=== PATIENT | female | born 1985 | race African-American/Black ===

== ENCOUNTER 2020-07-06 13:16 | Inpatient (IN) | payer BC ==
[2020-07-06 17:26] VITALS: BMI 43.4
--- NOTE | 2020-07-06 17:32 | BHS.RME ---
Substance Use & Tx History - Substance Use History Alcohol Substance amount: 1 litre of liquor Frequency of use: Daily Substance route: Oral Date of Last Use: 07/06/20 - Last Treatment Date of last treatment: never Physical/Psych/Mental Status - Behavior Eye Contact: Normal - Cooperativeness Cooperativeness: Cooperative - Thinking Thought Processes: Logical Thought content: Future oriented - Physical Health Problems Is patient presently having any pain?: No Does patient presently have any injuries (include location): No Does patient currently have a fever: No CIWA Nausea/Vomitin Muscle Tremors: 3 Anxiety: 3 Agitation: 3 Paroxysmal Sweats: 1-Minimal Palms Moist Orientation: 0-Oriented Tacttile Disturbances: 0-None Auditory Disturbances: 0-None Visual Disturbances: 0-None Headache: 2-Mild CIWA-Ar Total Score: 15
--- NOTE | 2020-07-06 17:40 | HP ---
CIWA Score Nausea/Vomitin Muscle Tremors: 3 Anxiety: 3 Agitation: 3 Paroxysmal Sweats: 1-Minimal Palms Moist Orientation: 0-Oriented Tacttile Disturbances: 0-None Auditory Disturbances: 0-None Visual Disturbances: 0-None Headache: 2-Mild CIWA-Ar Total Score: 15 - Admission Criteria OASAS Guidelines: Admission for Medically Managed Detox: Requires at least one of the followin. CIWA greater than 12 2. Seizures within the past 24 hours 3. Delirium tremens within the past 24 hours 4. Hallucinations within the past 24 hours 5. Acute intervention needed for co occurring medical disorder 6. Acute intervention needed for co occurring psychiatric disorder 7. Severe withdrawal that cannot be handled at a lower level of care (continued vomiting, continued diarrhea, abnormal vital signs) requiring intravenous medication and/or fluids 8. Admitting History and Physical - Admission Chief Complaint: i need help to stop drinking alcohol History of Present Illness: this 34 years old female patient with alcohol dependence,sickle cell trait, never been in detox anxiety,depression,insomnia History Source: Patient Limitations to Obtaining History: No Limitations - Past Medical History ...LMP: 05/27/20 ...: No Infectious Disease: Yes: HIV Psych: Yes: Anxiety, Depression, Other (insomnia) - Smoking History Smoking history: Never smoked - Alcohol/Substance Use Hx Alcohol Use: Yes Date of Last Use: 07/06/20 - Social History Usual Living Arrangement: Yes: Alone Do you think of yourself as: Straight/Heterosexual Occupation: unemployed History of Recent Travel: No Other Social History: umemployed,no legal issue Admission [facility] Chief Complaint: i need helpto stop drinking alcohol Allergies/Adverse Reactions: Allergies Allergy/AdvReac Type Severity Reaction Status Date / Time No Known Allergies Allergy Verified 07/06/20 17:49 History of Present Illness: this 34 years old female with alcohol dependence seeking detox,withdrawal symptom denied seizure syncope obesity anxiety,depression,insomnia plan for rehab Exam Limitations: No Limitations - Ebola screening Have you traveled outside of the country in the last 21 days: No Have you had contact with anyone from an Ebola affected area: No Have you been sick,other than usual withdrawal symptoms: No - Review of Systems Constitutional: Loss of Appetite, Malaise, Night Sweats, Changes in sleep, Weakness EENT: reports: No Symptoms Reported, Nose Congestion Respiratory: reports: No Symptoms reported Cardiac: reports: No Symptoms Reported GI: reports: Nausea, Poor Appetite, Poor Fluid Intake : reports: No Symptoms Reported Musculoskeletal: reports: Back Pain, Muscle Pain Integumentary: reports: Dryness Neuro: reports: No Symptoms reported Endocrine: reports: No Symptoms Reported Hematology: reports: No Symptoms Reported Psychiatric: reports: No Sypmtoms Reported, Judgement Intact, Mood/Affect Appropiate, Orientated x3, Anxious, Depressed Other Systems: Reviewed and Negative Patient History - Patient Medical History Hx Anemia: No Hx Asthma: No Hx Chronic Obstructive Pulmonary Disease (COPD): No Hx Cancer: No Hx Cardiac Disorders: No Hx Congestive Heart Failure: No Hx Hypertension: No Hx Hypercholesterolemia: No Hx Pacemaker: No HX Cerebrovascular Accident: No Hx Seizures: No Hx Dementia: No Hx Diabetes: No Hx Gastrointestinal Disorders: No Hx Sexually Transmitted Disorders: No Hx Renal Disease (ESRD): No Hx Thyroid Disease: No Hx Human Immunodeficiency Virus (HIV): No (01/2020) Hx Hepatitis C: No Hx Depression: Yes Hx Suicide Attempt: No Hx Bipolar Disorder: No Hx Schizophrenia: No Other Medical History: no suicidal,no honicidal - Patient Surgical History Past Surgical History: No - PPD History Previous Implant?: Yes Documented Results: Negative w/o proof Implanted On Prior R Admission?: No PPD to be Administered?: Yes - Reproductive History Patient is a Female of Child Bearing Age (11 -55 yrs old): Yes Last Menstrual Period: 05/25/20 Patient : No - Smoking Cessation Smoking history: Never smoked Hx Chewing Tobacco Use: No Initiated information on smoking cessation: No - Substance & Tx. History Hx Alcohol Use: Yes Hx Substance Use: No Substance Use Type: Alcohol Hx Substance Use Treatment: No - Substances abused Alcohol Substance route: Oral Frequency: Daily Amount used: 1 litre of liquor Age of first use: 22 Date of last use: 07/06/20 Admission Physical Exam BHS - Vital Signs Vital Signs: Vital Signs - 24 hr 07/06/20 17:24 Temperature 97.1 F L Pulse Rate 82 Respiratory 18 Rate Blood Pressure 141/91 - Physical General Appearance: Yes: Moderate Distress, Tremorous, Irritable, Sweating, Anxious HEENTM: Yes: Normal ENT Inspection, TAVON, Pharynx Normal Respiratory: Yes: Lungs Clear, Normal Breath Sounds, No Respiratory Distress Neck: Yes: Within Normal Limits, Supple, Trachea in good position Breast: Yes: Breast Exam Deferred Cardiology: Yes: Within Normal Limits, Regular Rhythm, Regular Rate, S1, S2 Abdominal: Yes: Within Normal Limits, Non Tender, Flat, Soft, Increased Bowel Sounds Genitourinary: Yes: Within Normal Limits Back: Yes: Muscle Spasm Musculoskeletal: Yes: Back pain, Muscle Pain Extremities: Yes: Tremors Neurological: Yes: ad operations intern II-XII NML intact, Fully Oriented, Alert, Motor Strength 5/5 Integumentary: Yes: Dry Lymphatic: Yes: Within Normal Limits - Diagnostic (1) Alcohol dependence with uncomplicated withdrawal Current Visit: Yes Status: Acute (2) Alcohol dependence with intoxication Current Visit: Yes Status: Acute (3) Syncope Current Visit: Yes Status: Acute (4) Insomnia Current Visit: Yes Status: Acute (5) Anxiety and depression Current Visit: Yes Status: Acute Cleared for Admission [facility] - Detox or Rehab [facility] Level of Care: Medically Managed Detox Regimen/Protocol: Librium Breathalyzer - Breathalyzer Breathalyzer: 0.168 Urine Drug Screen - Test Device Lot number: [id number] Expiration date: 02/13/22 - Control Is test valid?: Yes - Results Drug screen NEGATIVE: Yes Inpatient Rehab Admission - Rehab Decision to Admit Inpatient rehab admission?: No
[2020-07-06] MEDS ORDERED: MAG HYDROX/AL HYDROX/SIMETH 30 ML UNIT-DOSE CUP PO PRN (18:04)
[2020-07-06] MEDS ORDERED: MAGNESIUM CITRATE 300 ML BOTTLE PO PRN (18:04)
[2020-07-06] MEDS ORDERED: MAGNESIUM HYDROX 2400MG/30ML ORAL SUSPENSION 30 ML CUP PO PRN (18:04)
[2020-07-06] MEDS ORDERED: IBUPROFEN 400 MG TABLET (FP) PO PRN (18:04)
[2020-07-06] MEDS ORDERED: METHOCARBAMOL 500 MG TABLET PO PRN (18:04)
[2020-07-06] MEDS ORDERED: ACETAMINOPHEN 325 MG TABLET (FP) PO PRN ×2 (18:04)
[2020-07-06] MEDS ORDERED: chlordiazePOXIDE HCL 25 MG CAPSULE PO PRN (18:04)
[2020-07-06] MEDS ORDERED: BISMUTH SUBSALICYLATE 524 MG/30 ML UD PO PRN (18:04)
[2020-07-06] MEDS ORDERED: MENTHOL/PHENOL 1 EACH UD MM PRN (18:04)
[2020-07-06] MEDS ORDERED: ONDANSETRON *ODT* 4 MG TABLET SL ONE (18:30)
[2020-07-06] MEDS: chlordiazePOXIDE HCL 25 MG CAPSULE PO SCH (22:33)
[2020-07-06] MEDS: THIAMINE HCL 100 MG TABLET (FP) PO SCH (22:33)
[2020-07-06] MEDS: MELATONIN 5 MG TABLETS PO SCH (22:34)
[2020-07-06] MEDS: hydrOXYzine PAMOATE 25 MG CAPSULE (FP) PO SCH (22:34)
[2020-07-07] MEDS: hydrOXYzine PAMOATE 25 MG CAPSULE (FP) PO SCH ×5 (05:59→22:33)
[2020-07-07] MEDS: chlordiazePOXIDE HCL 25 MG CAPSULE PO SCH ×4 (05:59→22:33)
[2020-07-07 10:17] LABS: HEMATOCRIT 33.7 % (32.4-45.2); MCH 28.7 pg (25.7-33.7); MCHC 32.7 g/dl (32.0-36.0); MEAN CELL VOLUME 87.9 fl (80-96); MEAN PLT VOLUME 9.3 fl (7.5-11.1); PLATELET COUNT 218 K/MM3 (134-434); RBC 3.84 M/mm3 (3.60-5.2); RDW 15.3 % (11.6-15.6); WHITE BLOOD COUNT 5.6 K/mm3 (4.0-10.0)
[2020-07-07 10:18] LABS: ALBUMIN 3.2 g/dl (3.4-5.0); BILIRUBIN,TOTAL 0.5 mg/dL (0.2-1); BLOOD UREA NITROGEN 9.3 mg/dL (7-18); CALCIUM 8.3 mg/dL (8.5-10.1); CREATININE 0.8 mg/dL (0.55-1.3); POTASSIUM 3.7 mmol/L (3.5-5.1)
[2020-07-07 10:19] LABS: TOT PROT 6.7 g/dl (6.4-8.2)
--- NOTE | 2020-07-07 10:29 | CONSULT ---
[facility] Psychiatric Consult - Data Date of interview: 07/07/20 Admission source: [facility] Identifying data: Patient is a 34 year old single female, without children, unemployed, domiciled, and is financially supported by cook assistance. This is patient's first admission to detox at [facility]. Patient admitted to for treatment of alcohol dependence. Substance Abuse History: Smoking Cessation. Smoking history: Never smoked. Hx Chewing Tobacco Use: No. Initiated information on smoking cessation: No. - Substance & Tx. History. Hx Alcohol Use: Yes. Hx Substance Use: No. Substance Use Type: Alcohol. Hx Substance Use Treatment: No. - Substances abused. Alcohol. Substance route: Oral. Frequency: Daily. Amount used: 1 litre of liquor. Age of first use: 22. Date of last use: 07/06/20 Medical History: Significant for sickle cell trait. Psychiatric History: Patient denies history of psychiatric hospitalizations, outpatient psychiatric care, and suicide attempt. Patient is prescribed Wellbutrin 150mg SR BID by her primary care physician. Reports taking the medication for one year but has been noncompliant with medication for two weeks due to relapsing. At present patient reports feeling sad. Physical/Sexual Abuse/Trauma History: denies. Mental Status Exam - Mental Status Exam Alert and Oriented to: Time, Place, Person Cognitive Function: Good Patient Appearance: Well Groomed Affect: Appropriate Patient Behavior: Cooperative Speech Pattern: Appropriate Voice Loudness: Normal Thought Process: Intact, Goal Oriented Thought Disorder: Not Present Hallucinations: Denies Suicidal Ideation: Denies Homicidal Ideation: Denies Insight/Judgement: Poor Sleep: Poorly Appetite: Fair Muscle strength/Tone: Normal Gait/Station: Normal Psychiatric Findings - Problem List ([place] 1, 2,3) (1) Alcohol-induced mood disorder Current Visit: Yes Status: Acute (2) Alcohol dependence with uncomplicated withdrawal Current Visit: Yes Status: Acute - Initial Treatment Plan Initial Treatment Plan: Psychoeducation provided. Detoxification in progress. Will order Wellbutrin 150mg XL. Benefits and side effects discussed. Verbal consent given.
[2020-07-07] MEDS: PRENATAL VITAMINS W/ FOLIC ACID TABLET (FP) PO SCH (10:38)
[2020-07-07 11:04] LABS: SICKLE CELL SCREEN NEGATIVE (NEGATIVE)
--- NOTE | 2020-07-07 11:51 | EKG ---
Test Reason : Blood Pressure : / mmHG Vent. Rate : 077 BPM Atrial Rate : 077 BPM P-R Int : 154 ms QRS Dur : 090 ms QT Int : 398 ms P-R-T Axes : 043 004 -04 degrees QTc Int : 450 ms NORMAL SINUS RHYTHM MINIMAL VOLTAGE CRITERIA FOR LVH, MAY BE NORMAL VARIANT NO PREVIOUS ECGS AVAILABLE Confirmed by JAYLYN SCHMIDT MD ([id number]) on 07/07/2020 11:51:16 AM Referred By: Confirmed By:JAYLYN SCHMIDT MD
--- NOTE | 2020-07-07 17:48 | PN ---
S CIWA - CIWA Score Nausea/Vomitin-Mild Nausea/No Vomiting Muscle Tremors: 2 Anxiety: 3 Agitation: 2 Paroxysmal Sweats: 3 Orientation: 0-Oriented Tacttile Disturbances: 1-Very Mild Itch/Numbness Auditory Disturbances: 0-None Visual Disturbances: 0-None Headache: 0-None Present CIWA-Ar Total Score: 12 BHS Progress Note (SOAP) Subjective: Feels ok Objective: 07/07/20 17:44 Last Vital Signs Temp Pulse Resp BP Pulse Ox 98 F 83 18 150/84 98 07/07/20 16:46 07/07/20 16:46 07/07/20 16:46 07/07/20 16:46 07/07/20 13:15 Elevated b/p Laboratory Tests 07/07/20 07/07/20 07/07/20 07:34 07:34 07:34 WBC 5.6 RBC 3.84 Hgb 11.0 Hct 33.7 MCV 87.9 MCH 28.7 MCHC 32.7 RDW 15.3 Plt Count 218 MPV 9.3 Sickle Cell Screen Negative Sodium 139 Potassium 3.7 Chloride 105 Carbon Dioxide 30 Anion Gap 4 L BUN 9.3 Creatinine 0.8 Est GFR (CKD-EPI)AfAm 112.27 Est GFR (CKD-EPI)NonAf 96.87 Random Glucose 76 Calcium 8.3 L Total Bilirubin 0.5 AST 9 L ALT 11 L Alkaline Phosphatase 68 Total Protein 6.7 Albumin 3.2 L Syphilis Serology Non-reactive Labs reviewed: Ca 8.3 (low), albumin 3.2 (low) Assessment: 07/07/20 17:46 Withdrawal sxs Noted with elevated b/p, hypocalcemia and hypoalbuminemia Plan: Continue detox Encourage PO water intake Elevated b/p: monitor b/p, start clonidine prn Hypocalcemia: start calcium carbonate 650mg PO bid while in detox Hypoalbuminemia: encourage diet
[2020-07-07] MEDS ORDERED: cloNIDine HCL 0.1 MG TABLET PO PRN (17:49)
[2020-07-07] MEDS: CALCIUM CARBONATE 650 MG TABLET PO SCH (22:33)
[2020-07-07] MEDS: THIAMINE HCL 100 MG TABLET (FP) PO SCH (22:33)
[2020-07-07] MEDS: MELATONIN 5 MG TABLETS PO SCH (22:34)
[2020-07-08] MEDS: chlordiazePOXIDE HCL 25 MG CAPSULE PO SCH ×4 (05:31→22:18)
[2020-07-08] MEDS: hydrOXYzine PAMOATE 25 MG CAPSULE (FP) PO SCH (05:32)
[2020-07-08] MEDS ORDERED: hydrOXYzine PAMOATE 25 MG CAPSULE (FP) PO PRN (08:45)
[2020-07-08] MEDS: CALCIUM CARBONATE 650 MG TABLET PO SCH ×2 (10:19→22:18)
[2020-07-08] MEDS: PRENATAL VITAMINS W/ FOLIC ACID TABLET (FP) PO SCH (10:20)
--- NOTE | 2020-07-08 10:53 | PN ---
S CIWA - CIWA Score Nausea/Vomitin-No Nausea/No Vomiting Muscle Tremors: 2 Anxiety: 2 Agitation: 2 Paroxysmal Sweats: 1-Minimal Palms Moist Orientation: 0-Oriented Tacttile Disturbances: 0-None Auditory Disturbances: 0-None Visual Disturbances: 0-None Headache: 0-None Present CIWA-Ar Total Score: 7 BHS Progress Note (SOAP) Subjective: diarrhea sweats restless Objective: 07/08/20 10:52 Vital Signs Temperature 97.3 F L 07/08/20 09:00 Pulse Rate 75 07/08/20 09:00 Respiratory Rate 20 07/08/20 09:00 Blood Pressure 121/85 07/08/20 09:00 O2 Sat by Pulse Oximetry (%) 98 07/08/20 05:24 Laboratory Tests 07/06/20 07/06/20 07/07/20 16:40 17:26 07:34 WBC RBC Hgb Hct MCV MCH MCHC RDW Plt Count MPV Sickle Cell Screen Sodium Potassium Chloride Carbon Dioxide Anion Gap BUN Creatinine Est GFR (CKD-EPI)AfAm Est GFR (CKD-EPI)NonAf Random Glucose Calcium Total Bilirubin AST ALT Alkaline Phosphatase Total Protein Albumin POC Urine HCG, Qual Negative Syphilis Serology Non-reactive COVID-19 ([facility]PRE[facility]) Not detected 07/07/20 07/07/20 07:34 07:34 WBC 5.6 RBC 3.84 Hgb 11.0 Hct 33.7 MCV 87.9 MCH 28.7 MCHC 32.7 RDW 15.3 Plt Count 218 MPV 9.3 Sickle Cell Screen Negative Sodium 139 Potassium 3.7 Chloride 105 Carbon Dioxide 30 Anion Gap 4 L BUN 9.3 Creatinine 0.8 Est GFR (CKD-EPI)AfAm 112.27 Est GFR (CKD-EPI)NonAf 96.87 Random Glucose 76 Calcium 8.3 L Total Bilirubin 0.5 AST 9 L ALT 11 L Alkaline Phosphatase 68 Total Protein 6.7 Albumin 3.2 L POC Urine HCG, Qual Syphilis Serology COVID-19 ([facility]PRE[facility]) labs noted aaox3 lying in bed no acute distress Assessment: 07/08/20 10:53 withdrawals Plan: continue detox increase fluids pepto prn
[2020-07-08] MEDS: THIAMINE HCL 100 MG TABLET (FP) PO SCH (22:18)
[2020-07-08] MEDS: MELATONIN 5 MG TABLETS PO SCH (22:18)
[2020-07-09] MEDS ORDERED: chlordiazePOXIDE HCL 10 MG CAPSULE PO PRN
[2020-07-09] MEDS: chlordiazePOXIDE HCL 10 MG CAPSULE PO SCH ×4 (05:58→22:37)
[2020-07-09] MEDS: CALCIUM CARBONATE 650 MG TABLET PO SCH ×2 (10:01→22:38)
[2020-07-09] MEDS: PRENATAL VITAMINS W/ FOLIC ACID TABLET (FP) PO SCH (10:02)
--- NOTE | 2020-07-09 10:51 | PN ---
S CIWA - CIWA Score Nausea/Vomitin-No Nausea/No Vomiting Muscle Tremors: 1-None Visible, but [place] Anxiety: 1-Mildly Anxious Agitation: 1-Slight > Activity Paroxysmal Sweats: 2 Orientation: 0-Oriented Tacttile Disturbances: 0-None Auditory Disturbances: 0-None Visual Disturbances: 0-None Headache: 0-None Present CIWA-Ar Total Score: 5 BHS Progress Note (SOAP) Subjective: feeling better little anxiety sweats Objective: 07/09/20 10:50 Vital Signs Temperature 97.3 F L 07/09/20 08:30 Pulse Rate 94 H 07/09/20 08:30 Respiratory Rate 18 07/09/20 08:30 Blood Pressure 110/70 07/09/20 08:30 O2 Sat by Pulse Oximetry (%) 96 07/09/20 07:09 Laboratory Tests 07/06/20 07/06/20 07/07/20 16:40 17:26 07:34 WBC RBC Hgb Hct MCV MCH MCHC RDW Plt Count MPV Sickle Cell Screen Sodium Potassium Chloride Carbon Dioxide Anion Gap BUN Creatinine Est GFR (CKD-EPI)AfAm Est GFR (CKD-EPI)NonAf Random Glucose Calcium Total Bilirubin AST ALT Alkaline Phosphatase Total Protein Albumin POC Urine HCG, Qual Negative Syphilis Serology Non-reactive COVID-19 ([facility]) Not detected 07/07/20 07/07/20 07:34 07:34 WBC 5.6 RBC 3.84 Hgb 11.0 Hct 33.7 MCV 87.9 MCH 28.7 MCHC 32.7 RDW 15.3 Plt Count 218 MPV 9.3 Sickle Cell Screen Negative Sodium 139 Potassium 3.7 Chloride 105 Carbon Dioxide 30 Anion Gap 4 L BUN 9.3 Creatinine 0.8 Est GFR (CKD-EPI)AfAm 112.27 Est GFR (CKD-EPI)NonAf 96.87 Random Glucose 76 Calcium 8.3 L Total Bilirubin 0.5 AST 9 L ALT 11 L Alkaline Phosphatase 68 Total Protein 6.7 Albumin 3.2 L POC Urine HCG, Qual Syphilis Serology COVID-19 ([facility]) pt requesting to get an HIV test aaox3 ambulating no acute distress Assessment: 07/09/20 10:50 mild withdrawals Plan: HIV test ordered as per pt request continue detox increase fluids
[2020-07-09] MEDS: MELATONIN 5 MG TABLETS PO SCH (22:37)
[2020-07-09] MEDS: THIAMINE HCL 100 MG TABLET (FP) PO SCH (22:37)
[2020-07-09] MEDS ORDERED: MASKS NR ONE (22:53)
[2020-07-10] MEDS: chlordiazePOXIDE HCL 10 MG CAPSULE PO SCH ×2 (05:33→17:17)
[2020-07-10] MEDS ORDERED: AMMONIUM LACTATE 12% LOTION 225 GM BOTTLE TP PRN (09:30)
[2020-07-10] MEDS ORDERED: COLLOIDAL OATMEAL 1 BAR EACH TP ONE (10:00)
[2020-07-10] MEDS: PRENATAL VITAMINS W/ FOLIC ACID TABLET (FP) PO SCH (10:15)
[2020-07-10] MEDS: CALCIUM CARBONATE 650 MG TABLET PO SCH ×2 (10:15→22:05)
--- NOTE | 2020-07-10 11:37 | PN ---
S CIWA - CIWA Score Nausea/Vomitin-No Nausea/No Vomiting Muscle Tremors: 1-None Visible, but [place] Anxiety: 1-Mildly Anxious Agitation: 1-Slight > Activity Paroxysmal Sweats: No Perspiration Orientation: 0-Oriented Tacttile Disturbances: 0-None Auditory Disturbances: 0-None Visual Disturbances: 0-None Headache: 0-None Present CIWA-Ar Total Score: 3 BHS Progress Note (SOAP) Subjective: I am breaking out; i have dry skin Objective: 07/10/20 11:37 Vital Signs Temperature 98.0 F 07/10/20 08:43 Pulse Rate 78 07/10/20 08:43 Respiratory Rate 18 07/10/20 08:43 Blood Pressure 104/64 07/10/20 08:43 O2 Sat by Pulse Oximetry (%) 100 07/10/20 08:43 Laboratory Tests 07/06/20 07/06/20 07/07/20 16:40 17:26 07:34 WBC RBC Hgb Hct MCV MCH MCHC RDW Plt Count MPV Sickle Cell Screen Sodium Potassium Chloride Carbon Dioxide Anion Gap BUN Creatinine Est GFR (CKD-EPI)AfAm Est GFR (CKD-EPI)NonAf Random Glucose Calcium Total Bilirubin AST ALT Alkaline Phosphatase Total Protein Albumin POC Urine HCG, Qual Negative Syphilis Serology Non-reactive COVID-19 ([facility]) Not detected HIV Ag/Ab Combo Qual 07/07/20 07/07/20 07/09/20 07:34 07:34 10:45 WBC 5.6 RBC 3.84 Hgb 11.0 Hct 33.7 MCV 87.9 MCH 28.7 MCHC 32.7 RDW 15.3 Plt Count 218 MPV 9.3 Sickle Cell Screen Negative Sodium 139 Potassium 3.7 Chloride 105 Carbon Dioxide 30 Anion Gap 4 L BUN 9.3 Creatinine 0.8 Est GFR (CKD-EPI)AfAm 112.27 Est GFR (CKD-EPI)NonAf 96.87 Random Glucose 76 Calcium 8.3 L Total Bilirubin 0.5 AST 9 L ALT 11 L Alkaline Phosphatase 68 Total Protein 6.7 Albumin 3.2 L POC Urine HCG, Qual Syphilis Serology COVID-19 ([facility]) HIV Ag/Ab Combo Qual Negative aaox3 ambulating no acute distress Assessment: 07/10/20 11:37 mild withdrawals skin dryness and small bumps noted on cheeks, neck pt states she gets these bumps and dryness once in a while and betamethasone helps Plan: continue detox betamethasone ordered aveeno soap lac hydrin lotion d/c in am
[2020-07-10] MEDS: BETAMETHASONE DIPR 0.05% CREAM 15 GM TUBE TP SCH ×2 (12:18→22:05)
[2020-07-10] MEDS: THIAMINE HCL 100 MG TABLET (FP) PO SCH (22:05)
[2020-07-10] MEDS: MELATONIN 5 MG TABLETS PO SCH (22:05)
[2020-07-11] MEDS ORDERED: chlordiazePOXIDE HCL 10 MG CAPSULE PO ONE (05:00)
[2020-07-11] MEDS: BETAMETHASONE DIPR 0.05% CREAM 15 GM TUBE TP SCH (09:04)
[2020-07-11] MEDS: CALCIUM CARBONATE 650 MG TABLET PO SCH (09:04)
[2020-07-11] MEDS: PRENATAL VITAMINS W/ FOLIC ACID TABLET (FP) PO SCH (09:04)
[2020-07-11 09:22] VITALS: BP 142/92; PULSE 96; TEMP 97.9
--- NOTE | 2020-07-11 14:15 | DS ---
[facility] Detox Discharge Summary Admission Date: 07/06/20 Discharge Date: 07/11/20 - History Present History: Alcohol Dependence - Physical Exam Results Vital Signs: Vital Signs Temperature 97.9 F 07/11/20 08:51 Pulse Rate 96 H 07/11/20 08:51 Respiratory Rate 16 07/11/20 08:51 Blood Pressure 142/92 07/11/20 08:51 O2 Sat by Pulse Oximetry (%) 99 07/11/20 08:51 Pertinent Admission Physical Exam Findings: Vital Signs Temperature 97.9 F 07/11/20 08:51 Pulse Rate 96 H 07/11/20 08:51 Respiratory Rate 16 07/11/20 08:51 Blood Pressure 142/92 07/11/20 08:51 O2 Sat by Pulse Oximetry (%) 99 07/11/20 08:51 Laboratory Tests 07/06/20 07/06/20 07/07/20 16:40 17:26 07:34 WBC RBC Hgb Hct MCV MCH MCHC RDW Plt Count MPV Sickle Cell Screen Sodium Potassium Chloride Carbon Dioxide Anion Gap BUN Creatinine Est GFR (CKD-EPI)AfAm Est GFR (CKD-EPI)NonAf Random Glucose Calcium Total Bilirubin AST ALT Alkaline Phosphatase Total Protein Albumin POC Urine HCG, Qual Negative Syphilis Serology Non-reactive COVID-19 ([facility]) Not detected HIV Ag/Ab Combo Qual 07/07/20 07/07/20 07/09/20 07:34 07:34 10:45 WBC 5.6 RBC 3.84 Hgb 11.0 Hct 33.7 MCV 87.9 MCH 28.7 MCHC 32.7 RDW 15.3 Plt Count 218 MPV 9.3 Sickle Cell Screen Negative Sodium 139 Potassium 3.7 Chloride 105 Carbon Dioxide 30 Anion Gap 4 L BUN 9.3 Creatinine 0.8 Est GFR (CKD-EPI)AfAm 112.27 Est GFR (CKD-EPI)NonAf 96.87 Random Glucose 76 Calcium 8.3 L Total Bilirubin 0.5 AST 9 L ALT 11 L Alkaline Phosphatase 68 Total Protein 6.7 Albumin 3.2 L POC Urine HCG, Qual Syphilis Serology COVID-19 ([facility]) HIV Ag/Ab Combo Qual Negative aaox3 ambulating no acute distress lungs CTA - Treatment Hospital Course: Detox Protocol Followed, Detoxed Safely, Responded well, Discharged Condition Good, Rehab Referral Accepted - Medication Discharge Medications: Ambulatory Orders Bupropion HCl [Bupropion HCl Sr] 150 mg PO DAILY 07/06/20 - Diagnosis (1) Alcohol dependence with intoxication Status: Chronic Qualifiers: Complication of substance-induced condition: uncomplicated Qualified Code(s): F10.220 - Alcohol dependence with intoxication, uncomplicated (2) Alcohol dependence with uncomplicated withdrawal Status: Chronic (3) Alcohol-induced mood disorder Status: Acute (4) Anxiety and depression Status: Acute (5) Insomnia Status: Acute (6) Syncope Status: Acute - AMA Did Patient Leave Against Medical Advice: No
== END 2020-07-11 09:19 | disposition home or self-care (01) | DRG 775 ==
LOC: YASAS 13:16 → Y6N 17:43
PROVIDERS: ADMIT Allergy & Immunology; ATTEND Allergy & Immunology
PROC: HZ2ZZZZ Detoxification Services for Substance Abuse Treatment (ICD-10-PCS; principal; 2020-07-06)
DX: F10.230 Alcohol dependence with withdrawal, uncomplicated (principal); F10.24 Alcohol dependence with alcohol-induced mood disorder; F32.9 Major depressive disorder, single episode, unspecified; F41.8 Other specified anxiety disorders; E72.20 Disorder of urea cycle metabolism, unspecified; G47.00 Insomnia, unspecified; E83.51 Hypocalcemia; D57.3 Sickle-cell trait; L85.3 Xerosis cutis; R03.0 Elevated blood-pressure reading, without diagnosis of hypertension; E66.01 Morbid (severe) obesity due to excess calories; Z68.41 Body mass index [BMI] 40.0-44.9, adult
CPT/HCPCS: 36415; 80053; 81025; 85027; 85660; 86780; 87389; 93005; 93010; U0003

== ENCOUNTER 2021-07-23 10:08 | Inpatient (IN) | payer OTHER ==
[2021-07-23 10:38] VITALS: BMI 43.4
[2021-07-23] MEDS ORDERED: ONDANSETRON *ODT* 4 MG TABLET SL PRN (11:26)
[2021-07-23] MEDS ORDERED: ACETAMINOPHEN 325 MG TABLET (FP) PO PRN ×2 (11:26)
[2021-07-23] MEDS ORDERED: MAG HYDROX/AL HYDROX/SIMETH 30 ML UNIT-DOSE CUP PO PRN (11:26)
[2021-07-23] MEDS ORDERED: BISMUTH SUBSALICYLATE 524 MG/30 ML PO PRN (11:26)
[2021-07-23] MEDS ORDERED: MENTHOL/PHENOL 1 EACH UD MM PRN (11:26)
[2021-07-23] MEDS ORDERED: MAGNESIUM CITRATE 300 ML BOTTLE PO PRN (11:26)
[2021-07-23] MEDS ORDERED: MAGNESIUM HYDROX 2400MG/30ML ORAL SUSPENSION 30 ML CUP PO PRN (11:26)
[2021-07-23] MEDS ORDERED: IBUPROFEN 400 MG TABLET (FP) PO PRN (11:26)
[2021-07-23] MEDS ORDERED: METHOCARBAMOL 500 MG TABLET PO PRN (11:26)
[2021-07-23] MEDS ORDERED: diazePAM 5 MG TABLET PO PRN (11:26)
[2021-07-23] MEDS ORDERED: hydrOXYzine PAMOATE 25 MG CAPSULE (FP) PO ONE (12:59)
[2021-07-23] MEDS ORDERED: diazePAM 5 MG TABLET ONE (12:59)
[2021-07-23] MEDS: diazePAM 5 MG TABLET PO SCH ×3 (13:01→22:25)
[2021-07-23] MEDS: PRENATAL VITAMINS W/ FOLIC ACID TABLET (FP) PO SCH (13:02)
[2021-07-23] MEDS ORDERED: hydrOXYzine PAMOATE 25 MG CAPSULE (FP) PO SCH (14:00)
[2021-07-23 14:58] LABS: CALCIUM 8.9 mg/dL (8.5-10.1); HEMATOCRIT 36.9 % (32.4-45.2); HEMOGLOBIN 12.3 GM/dL (10.7-15.3); MCH 28.9 pg (25.7-33.7); MCHC 33.2 g/dl (32.0-36.0); MEAN PLT VOLUME 8.6 fl (7.5-11.1); PLATELET COUNT 264 10^3/uL (134-434); RBC 4.24 M/mm3 (3.60-5.2); RDW 15.1 % (11.6-15.6); WHITE BLOOD COUNT 9.5 K/mm3 (4.0-10.0)
[2021-07-23 14:59] LABS: ALBUMIN 3.9 g/dl (3.4-5.0); BLOOD UREA NITROGEN 8.6 mg/dL (7-18)
[2021-07-23 15:02] LABS: CREATININE 0.8 mg/dL (0.55-1.3)
[2021-07-23 15:04] LABS: BILIRUBIN,TOTAL 0.9 mg/dL (0.2-1); TOT PROT 8.2 g/dl (6.4-8.2)
[2021-07-23] MEDS ORDERED: hydrOXYzine PAMOATE 25 MG CAPSULE (FP) PO PRN (15:29)
[2021-07-23] MEDS: MELATONIN 5 MG TABLETS PO SCH (22:25)
[2021-07-23] MEDS: THIAMINE HCL 100 MG TABLET (FP) PO SCH (22:25)
[2021-07-24] MEDS: diazePAM 5 MG TABLET PO SCH ×4 (05:15→22:26)
[2021-07-24 10:21] LABS: HIV INTERPRETATION NEGATIVE (NEGATIVE)
[2021-07-24] MEDS: PRENATAL VITAMINS W/ FOLIC ACID TABLET (FP) PO SCH (10:25)
[2021-07-24] MEDS: THIAMINE HCL 100 MG TABLET (FP) PO SCH (22:26)
[2021-07-24] MEDS: MELATONIN 5 MG TABLETS PO SCH (22:26)
[2021-07-25] MEDS: diazePAM 5 MG TABLET PO SCH ×3 (06:48→22:09)
[2021-07-25] MEDS: PRENATAL VITAMINS W/ FOLIC ACID TABLET (FP) PO SCH (10:28)
[2021-07-25] MEDS ORDERED: COLLOIDAL OATMEAL 1 BAR EACH TP PRN (13:00)
[2021-07-25] MEDS ORDERED: FLUCONAZOLE 50 MG TABLET PO ONE (13:30)
[2021-07-25] MEDS: MELATONIN 5 MG TABLETS PO SCH (22:09)
[2021-07-25] MEDS: THIAMINE HCL 100 MG TABLET (FP) PO SCH (22:09)
[2021-07-26] MEDS: diazePAM 5 MG TABLET PO SCH ×2 (06:50→17:46)
[2021-07-26] MEDS: PRENATAL VITAMINS W/ FOLIC ACID TABLET (FP) PO SCH (10:41)
[2021-07-26] MEDS: MELATONIN 5 MG TABLETS PO SCH (22:16)
[2021-07-26] MEDS: THIAMINE HCL 100 MG TABLET (FP) PO SCH (22:16)
[2021-07-27] MEDS ORDERED: diazePAM 5 MG TABLET PO ONE (06:00)
[2021-07-27 06:49] VITALS: BP 126/80; PULSE 72; TEMP 97
[2021-07-27] MEDS: PRENATAL VITAMINS W/ FOLIC ACID TABLET (FP) PO SCH (09:00)
== END 2021-07-27 09:15 | disposition home or self-care (01) | DRG 775 ==
LOC: YASAS 10:08 → Y3N 12:02
PROVIDERS: ADMIT Allergy & Immunology; ATTEND Allergy & Immunology
PROC: HZ2ZZZZ Detoxification Services for Substance Abuse Treatment (ICD-10-PCS; principal; 2021-07-23)
DX: F10.230 Alcohol dependence with withdrawal, uncomplicated (principal); F10.24 Alcohol dependence with alcohol-induced mood disorder; F32.9 Major depressive disorder, single episode, unspecified; F41.8 Other specified anxiety disorders; D57.3 Sickle-cell trait; G47.00 Insomnia, unspecified; L30.9 Dermatitis, unspecified; Z91.14 Patient's other noncompliance with medication regimen
CPT/HCPCS: 36415; 80053; 85027; 86780; 87389; C9803; U0003; U0005